=== PATIENT | male | born 1960 | race Caucasian/White ===

== ENCOUNTER 2025-08-10 05:24 | Emergency (ER) | payer OTHER, MEDICARE ==
[2025-08-10] MEDS ORDERED: ACETAMINOPHEN 325 MG TABLET (FP) ONE (05:44)
[2025-08-10] MEDS ORDERED: DIPHTH,PERTUSS(ACELL),TET 0.5 ML DISP.SYRIN IM ONE (05:45)
[2025-08-10] MEDS: ACETAMINOPHEN 325 MG TABLET (FP) PO ONE (05:46)
[2025-08-10] MEDS: DIPHTH,PERTUSS(ACELL),TET 0.5 ML DISP.SYRIN IM ONE (05:46)
[2025-08-10 05:48] VITALS: BP 147/94; PULSE 75; RESP 18; TEMP 97.2; BMI 21.9
== END 2025-08-10 07:01 | disposition home or self-care (01) ==
LOC: JER 05:24
PROC: 3E0234Z Introduction of Serum, Toxoid and Vaccine into Muscle, Percutaneous Approach (ICD-10-PCS; principal; 2025-08-10)
DX: S09.90XA Unspecified injury of head, initial encounter (principal); Z23 Encounter for immunization; W01.190A Fall on same level from slipping, tripping and stumbling with subsequent striking against furniture, initial encounter
CPT/HCPCS: 70450-TC; 90471; 90715; 99284-25